=== PATIENT | female | born 1965 | race Caucasian/White ===

== ENCOUNTER 2023-05-19 06:00 | Outpatient (OUT) | payer BC, SELFPAY ==
[2023-05-19] MEDS: COVID VAC 23-24(12UP)MODERNA/PF 50 MCG/0.5 ML VIAL IM (13:00)
== END 2023-05-19 06:01 | disposition home or self-care (01) ==
DX: Z23 Encounter for immunization (principal)
CPT/HCPCS: 90480; 91322

== ENCOUNTER 2023-06-08 12:40 | Outpatient (OUT) | payer BC, SELFPAY ==
[2023-06-08 13:22] LABS: Basophils Absolute Auto 0.1 10^3/uL (0.0-0.1); Basophils Percent Auto 1.6 % (0.2-2.0); Eosinophils Absolute Auto 0.2 10^3/uL (0.0-0.7); Eosinophils Percent Auto 3.7 % (0.9-7.0); Hematocrit 38.9 % (36.0-48.0); Hemoglobin 12.2 g/dL (12.0-16.0); Immature Granulocytes Abs Auto 0.01 10^3/uL (0.00-0.03); Immature Granulocytes Pct Auto 0.2 % (0.0-0.5); Lymphocytes Absolute Auto 1.3 10^3/uL (1.2-3.8); Lymphocytes Percent Auto 23.4 % (20.5-60.0); Mean Corpuscular HGB Conc 31.4 g/dL (29.9-35.2); Mean Corpuscular Hemoglobin 29.1 pg (26.7-34.0); Mean Corpuscular Volume 92.8 fL (81.0-99.0); Mean Platelet Volume 10.1 fL (9.5-13.5); Monocytes Absolute Auto 0.6 10^3/uL (0.3-0.8); Monocytes Percent Auto 10.8 % (1.7-12.0); Neutrophils Absolute Auto 3.4 10^3/uL (1.4-6.5); Neutrophils Percent Auto 60.3 % (43.0-75.0); Platelet Count 327 10^3/uL (150-450); Red Blood Count 4.19 10^6/uL (4.20-5.40); Red Cell Distribution Width 13.3 % (11.0-15.0); White Blood Count 5.6 10^3/uL (4.0-11.0)
[2023-06-08 13:55] LABS: Alanine Aminotransferase 23 U/L (14-59); Albumin Globulin Ratio 1.2; Alkaline Phosphatase 78 U/L (46-116); Aspartate Amino Transferase 18 U/L (15-37); BUN Creatinine Ratio 18.3; Bilirubin Total 0.4 mg/dL (0.2-1.0); Calcium 8.9 mg/dL (8.5-10.1); Chloride 104 mmol/L (98-107); Chol HDL Ratio 3.2; Cholesterol 215 mg/dL (<=200); Estimated GFR (African America >60 (>=60); Estimated GFR (Non-African Ame >60 (>=60); Globulin 3.4 g/dL; Glucose 93 mg/dL (74-106); HDL Cholesterol 68 mg/dL (40-60); Sodium 141 mmol/L (136-145); Thyroid Stimulating Hormone 1.297 uIU/mL (0.358-3.740); Total Protein 7.4 g/dL (6.4-8.2); Triglycerides 92 mg/dL (<=150); VLDL CHOLESTEROL 18.4 mg/dL
== END 2023-06-08 12:41 | disposition home or self-care (01) ==
LOC: LAB 12:43
PROVIDERS: PCP Internal Medicine; Visit Provider Internal Medicine
DX: Z00.00 Encounter for general adult medical examination without abnormal findings (principal)
CPT/HCPCS: 36415; 80053; 80061; 84443; 85025

== ENCOUNTER 2024-07-01 11:03 | Outpatient (OUT) | payer BC, SELFPAY ==
--- OUTSIDE RECORDS SUMMARY | 2024-07-01 11:14 | XMS_ITS | CCD ---
Author Organization [facility] [place] CliniSyva Care Team Providers Care Process Manufacturing Engineer Name Role Phone Cali De La Rosa Unavailable Unavailable Nill, Cali Gracia Unavailable Unavailable HOWARD CALDERON~[phone] UNKNOWN Unavailable Unavailable FABRICIO ROSS Attending Unavailable GISELE, DR LANDIS Primary Care Unavailable AMNA, DR RICHARD Mark Consulting Unavailable CODYFABRICIO Admitting Unavailable CODYFABRICIO Consulting Unavailable GISELE, DR LANDIS Primary Care Unavailable YARA REYES Admitting Unavailable AMY, YARA Miranda Consulting Unavailable YARA REYES Attending Unavailable GISELE, DR LANDIS Primary Care Unavailable KVNG, DR AWAN Consulting Unavailable BALL, DR AWAN Attending Unavailable BALL, DR WAAN Admitting Unavailable HOY, DR LANDIS Consulting Unavailable FARSHADY, DR LANDIS Attending Unavailable GISELE, DR LANDIS Admitting Unavailable GISELE, DR LANDIS Primary Care Unavailable YARA REYES Attending Unavailable AMNA, DR RICHARD Mark Consulting Unavailable LINGANDERYARA Admitting Unavailable BALL, DR AWAN Primary Care Unavailable ZIEBER, DR JARED Gracia Consulting Unavailable HIGHLANDERYARA Consulting Unavailable AGUBOSIM, MANDEEP Consulting Unavailable FELIPEDEEPAK Consulting Unavailable BRONSONSUDEEP PROCTOR Consulting Unavailable YARA REYES Attending Unavailable HIGHLANDERYARA Admitting Unavailable BALL, DR AWAN Primary Care Unavailable HIGHLANDERYARA Consulting Unavailable LINGANDERYARA Attending Unavailable GISELE, DR LANDIS Primary Care Unavailable YARA REYES Admitting Unavailable YARA REYES Consulting Unavailable SUZETTE, SONIA Attending Unavailable GISELE, DR LANDIS Consulting Unavailable GISELE, DR LANDIS Primary Care Unavailable SUZETTE, SONIA Admitting Unavailable SUZETTESONIA Consulting Unavailable SUDEEP DOBSON Attending Unavailable SUDEEP DOBSON Admitting Unavailable GISELE, DR LANDIS Primary Care Unavailable GISELE, DR LANDIS Consulting Unavailable GISELE, DR LANDIS Attending Unavailable HOY, DR LANDIS Admitting Unavailable HOY, DR LANDIS Primary Care Unavailable GISELE, DR LANDIS Primary Care Unavailable GISELE, DR LANDIS Consulting Unavailable GISELE, DR LANDIS Attending Unavailable GISELE, DR LANDIS Admitting Unavailable CODY, FABRICIO Attending Unavailable GISELE, DR LANDIS Primary Care Unavailable EDVIN, DR JARED Gracia Consulting Unavailable CODY, FABRICIO Admitting Unavailable CODY, FABRICIO Consulting Unavailable CODY, FABRICIO Attending Unavailable GISELE, DR LANDIS Primary Care Unavailable CODY, FABRICIO Admitting Unavailable EDVIN, DR JARED Gracia Consulting Unavailable CODY, FABRICIO Consulting Unavailable CODY, FABRICIO Attending Unavailable GISELE, DR LANDIS Primary Care Unavailable CODY, FABRICIO Admitting Unavailable AMNA, DR RICHARD Mark Consulting Unavailable CODY, FABRICIO Consulting Unavailable Howard Calderno Unavailable Allergies Allergy Classification Reported Allergen(s) Allergy Type Date of Onset Reaction(s) Facility (2 sources) Nitrofurantoin Drug Allergy 5 Unknown [facility] Repository (1 source) Sulfonamides (Antibiotic) Drug allergy (disorder) 5 [facility] Repository (1 source) Nitrofurantoin Drug Allergy 7 Unknown [facility] Other (2 sources) Substance with sulfonamide structure and antibacterial mechanism of action (substance) Drug allergy 7 Unknown [facility] Other Medications Current Medications Medication Drug Class(es) Dates Sig (Normalized) Sig (Original) aspirin 81 mg delayed release oral tablet (2 sources) Platelet Aggregation Inhibitor, Nonsteroidal Anti-inflammator y Drug Start: 2 take 1 tablet by mouth every twenty-four hours Aspirin Adult Low Dose 81 MG 1 tablet Orally Once a day for 0 days May, Active benazepril hydrochloride 5 mg oral tablet (2 sources) Angiotensin Converting Enzyme Inhibitor take 1 tablet by mouth every twenty-four hours Benazepril HCl 5 MG 1 tablet Orally Once a day Active calcium carbonate 1250 mg oral tablet (2 sources) Start: 2 take 1 tablet by mouth every twelve hours Calcium Oyster Shell 1250 (500 Ca) MG 1 tablet with food Orally Twice a day for 0 days May, Active cetirizine hydrochloride 10 mg oral tablet (2 sources) Histamine-1 Receptor Antagonist Start: 2 take 1 tablet by mouth every twenty-four hours Cetirizine HCl 10 MG 1 tablet Orally Once a day for 0 days May, Active cholecalciferol 0.05 mg oral capsule (2 sources) Vitamin D Start: 2 take 1 capsule by mouth every twenty-four hours Vitamin D3 50 MCG (2000 UT) 1 capsule Orally Once a day for 0 days Sep, Active Daily Multivitamin - (2 sources) Start: 2 Daily Multivitamin - as directed Orally Daily for 0 days May, Active ferrous sulfate 325 mg oral tablet (2 sources) Start: 2 take 1 tablet by mouth three times weekly Iron 325 (65 Fe) MG 1 tablet Orally Three times a Week for 0 days May, Active hydroCHLOROthiazide 12.5 mg oral tablet (2 sources) Thiazide Diuretic take 1 tablet by mouth once daily hydroCHLOROthiazide 12.5 MG TAKE 1 TABLET BY MOUTH DAILY for 90 Active levothyroxine sodium 0.112 mg oral tablet (2 sources) l-Thyroxine take 1 tablet by mouth once daily in the morning Levothyroxine Sodium 112 MCG 1 tablet in the morning on an empty stomach Orally Once a day for 90 days Active Problems Active Problems Problem Classification Problem Date Documented Date Episodic/Chronic Acquired foot deformities (5 sources) Hallux rigidus, left foot; Translations: [HALLUX RIGIDUS LEFT FOOT] Onset: 07-26-2021 Chronic Essential hypertension (6 sources) Essential (primary) hypertension; Translations: [Essential hypertension] Onset: 08-12-2021 Chronic Menopausal disorders (2 sources) Menopausal symptom; Translations: [Menopausal and female climacteric states] Chronic Osteoarthritis (2 sources) Osteoarthritis of knee; Translations: [Unilateral primary osteoarthritis, right knee] Chronic Other connective tissue disease (2 sources) Pain in left foot; Translations: [Pain in left foot] Episodic Other nervous system disorders (1 source) Polyneuropathy, unspecified; Translations: [POLYNEUROPATHY UNSPECIFIED] Onset: 10-08-2021 Chronic Other nutritional; endocrine; and metabolic disorders (2 sources) Body mass index 30+ - obesity; Translations: [Body mass index (BMI) 30.0-30.9, adult] Chronic Other nutritional; endocrine; and metabolic disorders (2 sources) Obesity caused by energy imbalance; Translations: [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] Chronic Other nutritional; endocrine; and metabolic disorders (1 source) 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 Chronic Other nutritional; endocrine; and metabolic disorders (1 source) Body mass index (BMI) 30.0-30.9, adult Chronic Other screening for suspected conditions (not mental disorders or infectious disease) (1 source) Encounter for screening mammogram for malignant neoplasm of breast Episodic Other skin disorders (2 sources) Ingrowing nail; Translations: [Ingrowing nail] Episodic Ovarian cyst (2 sources) Cyst of left ovary; Translations: [Unspecified ovarian cyst, left side] Episodic Thyroid disorders (6 sources) Autoimmune hypothyroidism; Translations: [Hypothyroidism, unspecified] Chronic Unclassified (3 sources) COUGH, UNSPECIFIED; Translations: [COUGH, UNSPECIFIED] Onset: 06-15-2022 Unclassified (4 sources) CONTACT W/AND (SUSP) EXPOS COVID-19; Translations: [CONTACT W/AND (SUSP) EXPOS COVID-19] Onset: 06-30-2021 Past or Other Problems Problem Classification Problem Date Documented Da te Episodic/Chronic Other aftercare (1 source) Other buttermaker helper (current) drug therapy; Translations: [OTH NURSING HOME CURRENT DRUG THERAPY] Onset: 08-12-2021 Episodic Other aftercare (1 source) buttermaker helper (current) use of aspirin; Translations: [NURSING HOME CURRENT USE OF ASPIRIN] Onset: 08-12-2021 Episodic Other connective tissue disease (5 sources) Pain in left foot; Translations: [PAIN IN LEFT FOOT] Onset: 08-12-2021 Episodic Other connective tissue disease (4 sources) Pain in right foot; Translations: [PAIN IN RIGHT FOOT] Onset: 10-04-2021 Episodic Residual codes; unclassified (1 source) Acquired absence of both cervix and uterus; Translations: [ACQUIRED ABSENCE BOTH CERVIX AND UTERUS] Onset: 08-12-2021 Episodic Unclassified (1 source) COUGH, UNSPECIFIED; Translations: [COUGH, UNSPECIFIED] Onset: 06-12-2022 Unclassified (1 source) CONTACT W/AND (SUSP) EXPOS COVID-19; Translations: [CONTACT W/AND (SUSP) EXPOS COVID-19] Onset: 06-24-2021 Results Test Name Value Interpretation Reference Range Kelly medina Covid-19 PCR (CVDTBH)on 05-29 SARS-CoV-2 (COVID-19) RNA KO+probe Ql (Unsp spec) Not detected Normal NOT DETECTED [facility] Comment on above: Result Comment: This test is not yet approved or cleared by the [place] FDA. When there are no FDA-approved or cleared tests available, and other criteria are met, FDA can make tests available under an emergency access mechanism called an Emergency Use Authorization (EUA). The EUA for this test is supported by the [place] of Health and Human Service's (HHS's) declaration that circumstances exist to justify the emergency use of in vitro diagnostics for the detection and/or diagnosis of the virus that causes COVID-19. This EUA will remain in effect (meaning this test can be used) for the duration of the COVID-19 declaration justifying emergency of IVDs, unless it is terminated or revoked by FDA (after which the test may no longer be used). When diagnostic testing is negative, the possibility of a false negative should be considered in the context of a patient's recent exposures and the presence of clinical signs and symptoms consistent with SARS-CoV-2. Performed By: #### C VDTBH ####[facility] [address] [address]Dr. Karina Lindsay INFLUENZA A AND B AGon 06-12 [facility] SEE BELOW Normal [facility] Comment on above: Result Comment: Nega tive for Flu A protein angiten. Infection due to Flu A cannot be ruled out. Flu A angiten in the sample may be below the detection limit of the test. Performed By: #### I NFLUAB #### [facility] [address] [address] [address] Karina Lindsay INFLUBNEG SEE BELOW Normal [facility] Comment on above: Result Comment: Nega tive for Flu B protein antigen. Infection due to Flu B cannot be ruled out. Flu B antigen in the sample may be below the detection limit of the test. Performed By: #### I NFLUAB #### [facility] [address] [address] [address] Karina Lindsay INFLUENZA A AG Negative Normal NEGATIVE SEE COMMENT [facility] Comment on above: Performed By: #### I NFLUAB #### [facility] [address] [address] [address] Karina Lindsay INFLUENZA B AG Negative Normal NEGATIVE SEE COMMENT [facility] Comment on above: Performed By: #### I NFLUAB #### [facility] [address] [address] [address] Karina Lindsay INTERNAL CONTROLS Within Normal Limits Normal Wi thin Normal Limits [facility] Comment on above: Performed By: #### I NFLUAB #### [facility] [address] [address] [address] Karina Lindsay CBC AUTO DIFFon 06-05-2022 BASO # 0.1 103/ul Normal 0.0-0.1 [facility] Comment on above: Performed By: #### C BC ####[facility] [address] [address]DrTrice Lindsay Basophils/100 WBC (Bld) 1.2 % Normal 0.2-2.0 [facility] Comment on above: Performed By: #### C BC ####[facility] [address] [address]DrTrice Lindsay EO # 0.2 103/ul Normal 0.0-0.7 [facility] Comment on above: Performed By: #### C BC ####[facility] [address] [place] [address]DrTrice Lindsay Eosinophils/100 WBC (Bld) 4.8 % Normal 0.9-7.0 [facility] Comment on above: Performed By: #### C BC ####[facility] [address] [place] [id number] Lindsay Erythrocyte distribution width (RBC) [Ratio] 13.2 % Normal 11.0-15.0 [facility] Comment on above: Performed By: #### C BC ####[facility] [address] [address]DrTrice Lindsay Hematocrit (Bld) [Volume fraction] 38.2 % Normal 36.0-48.0 [facility] Comment on above: Performed By: #### C BC ####[facility] [address] [address]Dr. Karina Lindsay Hemoglobin (Bld) [Mass/Vol] 12.5 g/dL Normal 12.0-16.0 [facility] Comment on above: Performed By: #### C BC ####[facility] [address] [address]Dr. Karina Lindsay IG # 0.01 10e3/ul Normal 0.00-0.03 [facility] Comment on above: Performed By: #### C BC ####[facility] [address] [place], [place] [address]Dr. Karina Lindsay IG % 0.2 % Normal 0.0-0.5 [facility] Comment on above: Performed By: #### C BC ####[facility] [address] [place], [place] [address]Dr. Karina Lindsay LYMPH # 1.3 103/ul Normal 1.2-3.8 [facility] Comment on above: Performed By: #### C BC ####[facility] [address] [place], [place] [address]Dr. Karina Lindsay Lymphocytes/100 WBC (Bld) 25.0 % Normal 20.5-60.0 [facility] Comment on above: Performed By: #### C BC ####[facility] [address] [place], [place] [address]Dr. Carenchseter Lindsay MANUAL DIFF REQ NO Normal [facility] Comment on above: Performed By: #### C BC ####[facility] [address] [place], [place] [address]Dr. Karina Lindsay MCH (RBC) [Entitic mass] 30.8 pg Normal 26.7-34.0 [facility] Comment on above: Performed By: #### C BC ####[facility] [address] [place], [place] [address]Dr. Karina Lindsay MCHC (RBC) [Mass/Vol] 32.7 g/dL Normal 29.9-35.2 [facility] Comment on above: Performed By: #### C BC ####[facility] [address] [place] [id number]. Karina Lindsay MCV (RBC) [Entitic vol] 94.1 fL Normal 81.0-99.0 [facility] Comment on above: Performed By: #### C BC ####[facility] [address] [place] [id number]. Karina Lindsay MONO # 0.5 103/ul Normal 0.3-0.8 [facility] Comment on above: Performed By: #### C BC ####[facility] [address] [place] [id number]. Karina Neftali Monocytes/100 WBC (Bld) 10.5 % Normal 1.7-12.0 [facility] Comment on above: Performed By: #### C BC ####[facility] [address] [place], [place] [id number]. Karina Lindsay NEUT # 2.9 103/ul Normal 1.4-6.5 [facility] Comment on above: Performed By: #### C BC ####[facility] [address] [place] [id number]. Karina Neftali Neutrophils/100 WBC (Bld) 58.3 % Normal 43.0-75.0 [facility] Comment on above: Performed By: #### C BC ####[facility] [address] [place] [id number]. Karina Neftali Platelet mean volume (Bld) [Entitic vol] 9.7 fL Normal 9.5-13.5 [facility] Comment on above: Performed By: #### C BC ####[facility] [address] [place] [id number]. Karina Neftali PLT 303 103/ul Normal 150-450 [facility] Comment on above: Performed By: #### C BC ####[facility] [address] [place] [id number]. Karina Lindsay RBC 4.06 106/ul Critically low 4.20-5.40 [facility] Comment on above: Performed By: #### C BC ####[facility] [address] [place], [place] [address]WtDr. Karina Lindsay WBC 5.0 103/ul Normal 4.0-11.0 [facility] Comment on above: Performed By: #### C BC ####[facility] [address] [place], [place] [address]NtDr. Karina Lindsay LIPID PROFILEon 06-05-2022 CHOL-HDL RATIO NORM SEE BELOW Normal [facility] Comment on above: Result Comment: 3.3 - 4.4 LOW RISK 4.4 - 7.1 AVERAGE RISK 7.1 - 11.0 MODERATE RISK >11.0 HIGH RISK Performed By: #### C MP, LIPID, TSH #### [facility] [address] [address] [address] Karina Lindsay Cholesterol [Mass/Vol] 209 mg/dL Critically high <=200 [facility] Comment on above: Performed By: #### C MP, LIPID, TSH #### [facility] [address] [address] [address] Karina Lnidsay Cholesterol in HDL [Mass/Vol] 75 mg/dL Critically high 40-60 [facility] Comment on above: Performed By: #### C MP, LIPID, TSH #### [facility] [address] [address] [address] Karina Lindsay Cholesterol in LDL [Mass/Vol] 117.2 mg/dL Normal [facility] Comment on above: Performed By: #### C MP, LIPID, TSH #### [facility] [address] [address] [address] Karina Lindsay Cholesterol.total/C holesterol in HDL [Mass ratio] 2.8 {ratio} Normal [facility] Comment on above: Performed By: #### C MP, LIPID, TSH #### [facility] [address] [address] [address] Karina Lindsay HDL NORMAL > or = 60 mg/dl - LO W CARDIOVASCULAR RISK <40 mg/dl - HIGH CARDIOVASCULAR RISK Normal [facility] Comment on above: Performed By: #### C MP, LIPID, TSH #### [facility] [address] [address] [address] Karina Lindsay LDL CALC NORMAL SEE BELOW Normal [facility] Comment on above: Result Comment: <100 mg/dl OPTIMAL 100 - 129 mg/dl NEAR OR ABOVE OPTIMAL 130 - 159 mg/dl BORDERLINE HIGH 160 - 189 mg/dl HIGH >190 mg/dl VERY HIGH Performed By: #### C MP, LIPID, TSH #### [facility] [address] [address] [address] Karina Lindsay Triglyceride [Mass/Vol] 84 mg/dL Normal <=150 [facility] Comment on above: Performed By: #### C MP, LIPID, TSH #### [facility] [address] [address] [address] Karina Lindsay VLDL CALC 16.8 mg/dL Normal [facility] Comment on above: Performed By: #### C MP, LIPID, TSH #### [facility] [address] [address] [address] Karina Lindsay PROF 14(COMP METB)on 022 Albumin [Mass/Vol] 4.1 g/dL Normal 3.4-5.0 [facility] Comment on above: Performed By: #### C MP, LIPID, TSH ####[facility] [address] [address]DrTrice Lindsay Albumin/Globulin [Mass ratio] 1.2 {ratio} Normal [facility] Comment on above: Performed By: #### C MP, LIPID, TSH ####[facility] [address] [place] [address]DrTrice Lindsay ALP [Catalytic activity/Vol] 82 U/L Normal 46-116 [facility] Comment on above: Performed By: #### C MP, LIPID, TSH ####[facility] [address] [place] [id number] Lindsay ALT [Catalytic activity/Vol] 15 U/L Normal 14-59 [facility] Comment on above: Performed By: #### C MP, LIPID, TSH ####[facility] [address] [place] [id number]. Karina Lindsay Anion gap [Moles/Vol] 9.9 mmol/L Normal [facility] Comment on above: Performed By: #### C MP, LIPID, TSH ####[facility] [address] [place] [address]Dr. Karina Lindsay AST [Catalytic activity/Vol] 18 U/L Normal 15-37 [facility] Comment on above: Performed By: #### C MP, LIPID, TSH ####[facility] [address] [address]Dr. Karina Lindsay Bilirubin [Mass/Vol] 0.3 mg/dL Normal 0.2-1.0 [facility] Comment on above: Performed By: #### C MP, LIPID, TSH ####[facility] [address] [place] [address]Dr. Karina Lindsay Calcium [Mass/Vol] 9.6 mg/dL Normal 8.5-10.1 [facility] Comment on above: Performed By: #### C MP, LIPID, TSH ####[facility] [address] [place] [address]Dr. Karina Lindsay Chloride [Moles/Vol] 104 mmol/L Normal 98-107 [facility] Comment on above: Performed By: #### C MP, LIPID, TSH ####[facility] [address] [place] [address]Dr. Karina Lindsay CO2 [Moles/Vol] 30.4 mmol/L Normal 21.0-32.0 [facility] Comment on above: Performed By: #### C MP, LIPID, TSH ####[facility] [address] [place] [address]Dr. Karina Lindsay Creatinine [Mass/Vol] 0.91 mg/dL Normal 0.55-1.02 [facility] Comment on above: Performed By: #### C MP, LIPID, TSH ####[facility] [address] [address]Dr. Karina Lindsay EGFR-AF RWANDAN >60 Normal >=60 [facility] Comment on above: Performed By: #### C MP, LIPID, TSH ####[facility] [address] [place] [id number]. Karina Lindsay EGFR-NON AF RWANDAN >60 Normal >=60 [facility] Comment on above: Performed By: #### C MP, LIPID, TSH ####[facility] [address] [place] [id number]. Karina Lindsay Globulin (S) [Mass/Vol] 3.5 g/dL Normal [facility] Comment on above: Performed By: #### C MP, LIPID, TSH ####[facility] [address] [place] [id number]. Karina Lindsay Glucose [Mass/Vol] 89 mg/dL Normal 74-106 [facility] Comment on above: Performed By: #### C MP, LIPID, TSH ####[facility] [address] [place] [address]Dr. Karina Lindsay Potassium [Moles/Vol] 4.3 mmol/L Normal 3.5-5.1 [facility] Comment on above: Performed By: #### C MP, LIPID, TSH ####[facility] [address] [place] [address]Dr. Karina Lindsay Protein [Mass/Vol] 7.6 g/dL Normal 6.4-8.2 [facility] Comment on above: Performed By: #### C MP, LIPID, TSH ####[facility] [address] [place] [id number]. Karina Lindsay Sodium [Moles/Vol] 140 mmol/L Normal 136-145 [facility] Comment on above: Performed By: #### C MP, LIPID, TSH ####[facility] [address] [place] [address]Dr. Karina Lindsay Urea nitrogen [Mass/Vol] 17.0 mg/dL Normal 7.0-18.0 [facility] Comment on above: Performed By: #### C MP, LIPID, TSH ####[facility] [address] [place] [id number]. Karina Lindsay Urea nitrogen/Creatinine [Mass ratio] 18.7 mg/mg Normal [facility] Comment on above: Performed By: #### C MP, LIPID, TSH ####[facility] [address] [place], [place] [address]ZiDr. Karina Lindsay TSHon 06-05-2022 TSH 2.794 uIU/mL Normal 0.358-3.740 [facility] Comment on above: Performed By: #### C MP, LIPID, TSH #### [facility] [address] [place], [place] [address] Dr. Karina Lindsay XR FOOT LT 2Von 08-05-2021 XR FOOT LT 2V EXAM: XR FOOT LT 2V HISTORY: Pain in left foot COMPARISON: 05/30/2021 TECHNIQUE: 14 fluoroscopic images FINDINGS: 14 fluoroscopic images demonstrate fusion of the first metatarsal-phalangeal joint with a dorsal plate and multiple screws. Anatomic alignment is demonstrated. IMPRESSION: Fusion the first metatarsal-phalangeal joint Electronically authenticated by: RICHARD WOO Date: 2021-08-05 15:44 Normal [facility] Covid-19 PCR (CVDTBH)on SARS-CoV-2 (COVID-19) RNA KO+probe Ql (Unsp spec) Not detected Normal NOT DETECTED [facility] Comment on above: Result Comment: This test is not yet approved or cleared by the [place] FDA. When there are no FDA-approved or cleared tests available, and other criteria are met, FDA can make tests available under an emergency access mechanism called an Emergency Use Authorization (EUA). The EUA for this test is supported by the [employer] of Health and Human Service's (HHS's) declaration that circumstances exist to justify the emergency use of in vitro diagnostics for the detection and/or diagnosis of the virus that causes COVID-19. This EUA will remain in effect (meaning this test can be used) for the duration of the COVID-19 declaration justifying emergency of IVDs, unless it is terminated or revoked by FDA (after which the test may no longer be used). When diagnostic testing is negative, the possibility of a false negative should be considered in the context of a patient's recent exposures and the presence of clinical signs and symptoms consistent with SARS-CoV-2. Performed By: #### C VDTBH ####[facility] [address] [place], [place] [address]Rt. Karina Lindsay [facility]on 05-30 SARS-CoV-2 (COVID-19) RNA KO+probe Ql (Unsp spec) Not detected Normal NOT DETECTED [facility] Comment on above: Result Comment: This test is not yet approved or cleared by the [place] FDA. When there are no FDA-approved or cleared tests available, and other criteria are met, FDA can make tests available under an emergency access mechanism called an Emergency Use Authorization (EUA). The EUA for this test is supported by the Creative Designer of Health and Human Service's (HHS's) declaration that circumstances exist to justify the emergency use of in vitro diagnostics for the detection and/or diagnosis of the virus that causes COVID-19. This EUA will remain in effect (meaning this test can be used) for the duration of the COVID-19 declaration justifying emergency of IVDs, unless it is terminated or revoked by FDA (after which the test may no longer be used). When diagnostic testing is negative, the possibility of a false negative should be considered in the context of a patient's recent exposures and the presence of clinical signs and symptoms consistent with SARS-CoV-2. Performed By: #### C VDTB ####[facility] [address] [place] [id number]. Karina Lindsay INFLUENZA A AND B AGon 06-24 [facility] SEE BELOW Normal [facility] Comment on above: Result Comment: Nega tive for Flu A protein angiten. Infection due to Flu A cannot be ruled out. Flu A angiten in the sample may be below the detection limit of the test. Performed By: #### I NFLUAB #### [facility] [address] [place] [address] Dr. Karina Lindsay [facility] SEE BELOW Normal [facility] Comment on above: Result Comment: Nega tive for Flu B protein antigen. Infection due to Flu B cannot be ruled out. Flu B antigen in the sample may be below the detection limit of the test. Performed By: #### I NFLUAB #### [facility] [address] [place] [address] Dr. Karina Lindsay INFLUENZA A AG Negative Normal NEGATIVE SEE COMMENT [facility] Comment on above: Performed By: #### I NFLUAB #### [facility] [address] [address] [address] Karina Lindsay INFLUENZA B AG Negative Normal NEGATIVE SEE COMMENT [facility] Comment on above: Performed By: #### I NFLUAB #### [facility] [address] [place] [address] Dr. Karina Lindsay INTERNAL CONTROLS Within Normal Limits Normal Wi thin Normal Limits [facility] Comment on above: Performed By: #### I NFLUAB #### [facility] [address] [place] [address] Dr. Karina Lindsay Coding Summary.on 01-01-2018 Coding Summary. CODING DATE: 01/01/2018 FINAL [facility] STATUS: Home (Routine DC) PAYOR: [facility] [place] [facility] DESCRIPTION 5671 Level 1 Pathology ADMIT DX: REASON FOR VISIT DX: D49.89 Neoplasm of unspecified behavior of other specified sites L98.9 Disorder of the skin and subcutaneous tissue, unspecified FINAL DX: PRINCIPAL: D23.5 Other benign neoplasm of skin of trunk SECONDARY: PYMT PROC APC STAT DESCRIPTION DOCTOR NAME DATE NOTE: The code number assigned matches the documented diagnosis and / or procedure in the patient's chart. However, the narrative phrase printed from the coding software may appear abbreviated, or result in slightly different terminology. Coded By: Delmi Walter Date Saved: 01/01/2018 08:57 am Normal [facility] Vital Signs Date Time Vital Sign Value Performing Clinician Facility 06-08-2023 11:00-0500 Body height 170.18 cm Howard Kvng Other [email or web address] Other 06-08-2023 11:00-0500 Body mass index (BMI) [Ratio] 30.44 kg/m2 Howard Kvng Other [email or web address] Other 06-08-2023 11:00-0500 Body weight 88.18 kg Howard Calderon Other [email or web address] Other 06-08-2023 11:00-0500 Diastolic blood pressure 86 mm[Hg] Howard Calderon Other [email or web address] Other 06-08-2023 11:00-0500 Respiratory rate 12 /min Howard Kvng Other [email or web address] Other 06-08-2023 11:00-0500 Systolic blood pressure 147 mm[Hg] Howard Calderon Other [email or web address] Other Encounters Encounter Date Encounter Type Care Provider Facility Start: 06-09-2023 End: 06-09-2023 ambulatory Howard Calderon Other [email or web address] Other Start: 06-09-2023 Telephone encounter Howard Calderon [facility] Start: 06-08-2023 End: 06-08-2023 ambulatory Howard Calderon Other [email or web address] Other Start: 06-08-2023 Encounter for genera l adult medical examination without abnormal findings Howard Calderon [facility] Start: 06-08-2023 Periodic preventive med est patient 40-64yrs Howard Calderon [facility] Start: 06-12-2022 End: 06-12-[address] BOBY ROY Facility:[facility] Start: 06-09-2022 Encounter for genera l adult medical examination without abnormal findings DR HOWARD CALDERON [facility] Start: 06-05-2022 End: 06-06-[address] BOBY ROY Facility:[facility] Start: 06-05-2022 End: 06-06-2022 Encounter for general adult medical examination without abnormal findings DR BOBY ROY Facility:[facility] Start: 05-07-2022 End: 05-08-[address] BOBY ORY Facility:[facility] Start: 02-12-2022 End: 02-13-[address] BOBY ROY Facility:[facility] Start: 11-12-2021 End: 11-13-2021 ambulatory FABRICIO ROSS Facility:[facility] Start: 10-15-2021 End: 10-16-2021 ambulatory FABRICIO ROSS Facility:[facility] Start: 10-04-2021 End: 10-05-2021 ambulatory SONIA BRADFORD Facility:[facility] Start: 09-18-2021 End: 10-04-2021 ambulatory SUDEEP DOBSON Facility:[facility] Start: 09-17-2021 End: 09-18-2021 ambulatory FABRICIO ROSS Facility:[facility] Start: 08-28-2021 End: 08-29-2021 ambulatory FABRICIO ROSS Facility:[facility] Start: 08-05-2021 End: 08-05-2021 ambulatory YARA REYES Facility:[facility] Start: 08-02-2021 Encounter for preprocedural laboratory examination YARA REYES [facility] Start: 07-31-2021 End: 08-01-2021 ambulatory YARA REYES Facility:[facility] Start: 07-31-2021 End: 08-01-2021 Encounter for preprocedural laboratory examination YARA REYES Facility:[facility] Start: 07-24-2021 End: 07-25-2021 ambulatory YARA REYES Facility:[facility] Start: 06-24-2021 End: 06-24-[address] BOBY ROY Facility:[facility] Start: 12-23-2017 End: 12-24-2017 Ambulatory Cali De La Rosa [facility] Immunizations Immunization Date Immunization Notes Care Provider Nanda mares 08-14-2020 COVID-19 Vaccine Pfi zer - Documentation Purposes Only Howard Calderon Other [email or web address] Other Payers Date Payer Category Payer Unknown [id number] 2017 Unknown 1965 Unknown [id number] 1965 Unknown [id number] 08.14.84 [id number] 1965 Unknown [id number] 1965 Unknown [id number] 08.14.84 [id number] 1965 Unknown [id number] 2.16.84 [id number] 1965 Unknown [id number] 2.16.84 0.1.933862.3.579.2.593 1965 Unknown [id number] 2.16.84 0.1.839482.3.579.2.593 1965 Unknown [id number] 2.16.84 0.1.644494.3.579.2.593 1965 Unknown [id number] 2.16.84 0.1.066908.3.579.2.593 1965 Unknown [id number] 2.16.84 0.1.532848.3.579.2.593 1965 Unknown [id number] 2.16.84 0.1.285103.3.579.2.593 1965 Unknown [id number] 2.16.84 0.1.228688.3.579.2.593 1965 Unknown [id number] 2.16.84 0.1.366219.3.579.2.593 1959 [id number] Unknown [id number] 2.16.84 [id number] Social History Date Type Detail Facility Sex Assigned At [email or web address] Other Evaluation note 06-08-2023 Note Date & Type Note Facility 06-08-2023 Evaluation note Encounter Date Diagnosis Assessment Notes May, Wellness examination (ICD-10 - Z00.00) Healthy diet and exercise. Reviewed age-appropriat e preventive testing recommended. May, Primary hypertension (ICD-10 - I10) This patient is instructed to consume a healthy, low-fat, low-salt diet. They are also encouraged to continue exercise to achieve/mainta in a normal BMI. Patient is instructed on home BP measurements: - rest for 5 minutes w/o talking- positioned w/ feet on floor and arm supported- average best 2/3 readings w/ goal < 135/85 May, Autoimmune thyroiditis (ICD-10 - E06.3) Clinically euthyroid, TSH yearly May, Other specified hypothyroidism (ICD-10 - E03.8) May, Screening mammogram for breast cancer (ICD-10 - Z12.31) Instructed patient on monthly SBE and yearly mammograms. May, 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 (ICD-10 - E66.09) This patient has been instructed on a low-fat, high-fiber diet. They are instructed to reduce calories, portion sizes and snacks. It is recommended that they exercise for 30 minutes, 3-5 times weekly. May, Body mass index [BMI] 30.0-30.9, adult (ICD-10 - Z68.30) [email or web address] Other Clinical Note 02-13-2022 Note Date & Type Note Facility 02-13-2022 Note PROCEDURE: XR FOOT L T MIN 3 VIEWS HISTORY: Pain in left foot COMPARISON: XR foot left 11/12/2021 FINDINGS: BONES:Mechanical fusion of the first metatarsophalangeal joint via dorsal plate and screws. No hardware fracture or loosening. No bone fracture dislocation. Calcaneal degenerative enthesopathic spurring. SOFT TISSUES:No visible soft tissue swelling. EFFUSION:None visible. OTHER: Negative. IMPRESSION: 1. Stable surgical changes without evidence of hardware failure or change in alignment. Electronically authenticated by: JARED PARDO Date: 2022-02-13 06:35 [facility] Clinical Note 11-12-2021 Note Date & Type Note Facility 11-12-2021 Note PROCEDURE: XR FOOT L T MIN 3 VIEWS COMPARISON: 10/15/2021 HISTORY: Pain FINDINGS: BONES:Stable dorsal fusion of first metatarsal-phalangeal joint with a plate and multiple screws. No acute fracture, dislocation or mechanical failure. Moderate enthesopathic spurring of the calcaneus. Mild degenerative changes with marginal osteophyte formation SOFT TISSUES:Negative. No visible soft tissue swelling. EFFUSION:None visible. OTHER: Negative. IMPRESSION: Stable first metatarsal-phalangeal joint fusion Electronically authenticated by: RICHARD WOO Date: 2021-11-12 09:29 [facility] Clinical Note 10-15-2021 Note Date & Type Note Facility 10-15-2021 Note PROCEDURE: XR FOOT L T MIN 3 VIEWS HISTORY: Pain in left foot COMPARISON: XR foot 09/17/2021 FINDINGS: BONES:Mechanical fusion of first metatarsophalangeal joint via dorsal plate and screws; no evidence of hardware fracture or loosening. No bone fracture, dislocation, or lesion. Minimal degenerative changes the midfoot. Mild degenerative disease appendix spurring of the calcaneus. SOFT TISSUES:No visible soft tissue swelling. EFFUSION:None visible. OTHER: Negative. IMPRESSION: 1. Stable surgical changes without evidence of hardware failure or change in alignment. Electronically authenticated by: JARED PARDO Date: 2021-10-15 10:33 [facility] Clinical Note 09-17-2021 Note Date & Type Note Facility 09-17-2021 Note PROCEDURE: XR FOOT L T MIN 3 VIEWS COMPARISON: 08/28/2021 HISTORY: Pain in left foot FINDINGS: BONES:Stable fusion first metatarsal-phalangeal joint with a dorsal plate and multiple screws. No acute fracture or dislocation. Degenerative changes with joint space narrowing marginal osteophyte formation. Mild to moderate enthesopathic spurring of the calcaneus SOFT TISSUES:Negative. No visible soft tissue swelling. EFFUSION:None visible. OTHER: Negative. IMPRESSION: Stable first metatarsal-phalangeal joint fusion. No mechanical failure Electronically authenticated by: RICHARD WOO Date: 2021-09-17 10:34 [facility] Clinical Note 08-28-2021 Note Date & Type Note Facility 08-28-2021 Note PROCEDURE: XR FOOT L T MIN 3 VIEWS HISTORY: Pain in left foot COMPARISON: XR foot left 08/05/2021 FINDINGS: BONES:Mechanical fusion of the first metatarsophalangeal joint without evidence of hardware fracture or loosening. Degenerative enthesopathic spurring of the calcaneus. SOFT TISSUES:Mild medial soft tissue swelling. Skin ashlyn dorsal to the first metatarsal. EFFUSION:None visible. OTHER: Negative. IMPRESSION: 1. Stable surgical changes without evidence of hardware failure or change in alignment. Electronically authenticated by: JARED PARDO Date: 2021-08-28 17:30 [facility] Clinical Note 08-06-2021 Note Date & Type Note Facility 08-06-2021 Note PROCEDURE: XR FOOT L T MIN 3 VIEWS HISTORY: Arthritis of left foot COMPARISON: XR foot left 08/05/2021 intraoperative images FINDINGS: BONES:Mechanical fusion of the first metatarsophalangeal joint via dorsal plate and screws. No visible hardware fracture. No bone fracture dislocation. Degenerative calcaneal enter spur. SOFT TISSUES:Distal dorsal soft tissue swelling and skin ashlyn. EFFUSION:None visible. OTHER: Negative. IMPRESSION: 1. Stable surgical changes without evidence of hardware fracture or change in alignment compared to intraoperative images. Electronically authenticated by: JARED PARDO Date: 2021-08-06 07:17 [facility] Evaluation note Note Date & Type Note Facility Evaluation note No Information [facility] Other History general Narrative - Reported Note Date & Type Note Facility History general Narrative - Reported Type Medical History Autoimmune hypothyroidism Medical History Essential hypertension Medical History Onychocryptosis Medical History Left foot pain Medical History Primary osteoarthrit is of right knee Medical History Phlebitis and thromb ophlebitis of superficial vessels of right lower extremity Medical History Rectocele Medical History Cystocele, midline Medical History Ovarian cyst, left Medical History Menopausal symptom Surgical History COLONOSCOPY 03/2019 Surgical History FUSION OF FIRST METATARSOPHALANGEAL (MTP) JOINT OF LEFT FOOT Surgical History Hernia Repair, Inguinal Surgical History Knee arthroscopy, Bilateral Surgical History ROBOT-ASSISTED LAPAR OSCOPIC TOTAL ABDOMINAL HYSTERECTOMY (BISI) AND BILATERAL SALPINGO-OOPHORECTOMY (BSO) Surgical History Right Knee Arthrosco py: lateral meniscectomy 04/2015 Surgical History Tonsillectomy and adenoidectomy 01/13/2006 Hospitalization History see surgical history [email or web address] Other Summary Purpose Family History No Family History Records FoundNo Family History Records Found Advance Directives No Advanced Directives Records FoundNo Advanced Directives Records Found Additional Source Comments INFORMATION SOURCE (unrecogn ized section and content) DATE CREATED AUTHOR 01/04/2018 [facility] DATE CREATED AUTHOR AUTHOR'S ORGANIZ ATION 06/19/2022 [facility] REASON FOR VISIT (unrecogniz ed section and content) [facility] results FOR RECORDS PERTAINING TO PATIENTS WHO ARE OR HAVE BEEN ENROLLED IN A CHEMICAL DEPENDENCY/SUBSTANCEABUSE PROGRAM, SOME INFORMATION MAY BE OMITTED. This clinical summary was aggregated from multiple sources. Caution should be exercised in using it in the provision of clinical care. This summary normalizes information from multiple sources, and as a consequence, information in this document may materially change the coding, format and clinical context of patient data. In addition, data may be omitted in some cases. CLINICAL DECISIONS SHOULD BE BASED ON THE PRIMARY CLINICAL RECORDS. [facility]. provides no warranty or guarantee of the accuracy or completeness of information in this document.
[2024-07-01 11:36] LABS: Basophils Absolute Auto 0.1 10^3/uL (0.0-0.1); Basophils Percent Auto 1.2 % (0.2-2.0); Eosinophils Absolute Auto 0.2 10^3/uL (0.0-0.7); Hematocrit 38.6 % (36.0-48.0); Hemoglobin 12.4 g/dL (12.0-16.0); Immature Granulocytes Abs Auto 0.01 10^3/uL (0.00-0.03); Immature Granulocytes Pct Auto 0.2 % (0.0-0.5); Lymphocytes Absolute Auto 1.3 10^3/uL (1.2-3.8); Lymphocytes Percent Auto 24.2 % (20.5-60.0); Mean Corpuscular HGB Conc 32.1 g/dL (29.9-35.2); Mean Corpuscular Hemoglobin 29.5 pg (26.7-34.0); Mean Corpuscular Volume 91.9 fL (81.0-99.0); Monocytes Absolute Auto 0.5 10^3/uL (0.3-0.8); Monocytes Percent Auto 9.4 % (1.7-12.0); Neutrophils Absolute Auto 3.2 10^3/uL (1.4-6.5); Platelet Count 320 10^3/uL (150-450); Red Cell Distribution Width 14.2 % (11.0-15.0); White Blood Count 5.2 10^3/uL (4.0-11.0)
[2024-07-01 12:00] LABS: Alanine Aminotransferase 26 U/L (14-59); Albumin Globulin Ratio 1.2; Albumin Level 3.8 g/dL (3.4-5.0); Alkaline Phosphatase 83 U/L (46-116); Anion Gap 8.9; Aspartate Amino Transferase 20 U/L (15-37); BUN Creatinine Ratio 20.9; Bilirubin Total 0.4 mg/dL (0.2-1.0); Calcium 9.2 mg/dL (8.5-10.1); Chloride 104 mmol/L (98-107); Cholesterol 212 mg/dL (<=200); Estimated GFR (African America >60 (>=60 mL/min/1.73m^2); Estimated GFR (Non-African Ame >60 (>=60 mL/min/1.73m^2); Globulin 3.3 g/dL; Glucose 87 mg/dL (74-106); HDL Cholesterol 70 mg/dL (40-60); Potassium 3.9 mmol/L (3.5-5.1); Sodium 142 mmol/L (136-145); Thyroid Stimulating Hormone 2.111 uIU/mL (0.358-3.740); Total Protein 7.1 g/dL (6.4-8.2); Triglycerides 82 mg/dL (<=150); VLDL CHOLESTEROL 16.4 mg/dL
== END 2024-07-01 11:04 | disposition home or self-care (01) ==
LOC: LAB 11:04
PROVIDERS: PCP Internal Medicine; Visit Provider Internal Medicine
DX: Z00.00 Encounter for general adult medical examination without abnormal findings (principal); E06.3 Autoimmune thyroiditis
CPT/HCPCS: 36415; 80053; 80061; 84443; 85025

== ENCOUNTER 2024-12-16 13:55 | Outpatient (OUT) | payer BC, SELFPAY ==
--- NOTE | 2024-12-16 13:59 | MM_ITS ---
Patient Name: BERNARDO JAQUEZ MR#: [id number] : 1965 Exam Date: 12/16/2024 Ordering Doctor: DR EMPERATRIZ GEORGE D.O. RADIOLOGY REPORT PROCEDURE: MM TOMOSYNTHESIS SCREENING BI COMPARISON: MG MAMM SCREEN 3D MAXIMO CAD, 05/02/2021. MG MAMM SCREEN MAXIMO W CAD, 06/07/2019. MG MAMM SCREEN MAXIMO W CAD, 11/25/2016. MG MAMM SCREEN MAXIMO W CAD, 12/01/2006. INDICATIONS: Screening for malignant neoplasm Calculator Name [facility] Breast Cancer Risk Assessment Tool 5 Year Breast Cancer Risk 1.50% Lifetime Breast Cancer Risk 8.30% Personal Breast Cancer No Personal Ovarian Cancer No Treatments None Family Cancers Grandmother-maternal with kidney cancer at age ~75. LOCATION: [facility] BREAST COMPOSITION: There are scattered areas of fibroglandular density. FINDINGS: DIAGNOSTIC CATEGORY 1--NEGATIVE. RIGHT BREAST: No significant suspicious finding. LEFT BREAST: No significant suspicious finding. RECOMMENDATIONS: ROUTINE MAMMOGRAM AND CLINICAL EVALUATION IN 12 MONTHS. PLEASE NOTE: A NORMAL MAMMOGRAM DOES NOT EXCLUDE THE POSSIBILITY OF BREAST CANCER. A CLINICALLY SUSPICIOUS PALPABLE LUMP SHOULD BE BIOPSIED. Dictated by: Viral Gary DO on 12/16/2024 at 16:03 Approved by: Viral Gary DO on 12/16/2024 at 16:05
--- OUTSIDE RECORDS SUMMARY | 2024-12-16 14:21 | XMS_ITS | CCD ---
Author Organization [facility] CliniSymt Care Team Providers Care Loan Servicing Specialist Name Role Phone Cali De La Rosa Unavailable Unavailable Cali De La Rosa Unavailable Unavailable HOWARD CALDERON~[phone] UNKNOWN Unavailable Unavailable FABRICIO ROSS Attending Unavailable GISELE, DR LANDIS Primary Care Unavailable WEST, DR RICHARD Mark Consulting Unavailable CODYFABRICIO Admitting Unavailable CODYFABRICIO Consulting Unavailable FARSHADY, DR LANDIS Primary Care Unavailable YARA REYES Admitting Unavailable YARA REYES Consulting Unavailable YARA REYES Attending Unavailable GISELE, DR LANDIS Primary Care Unavailable BALL, DR AWAN Consulting Unavailable BALL, DR AWAN Attending Unavailable BALL, DR AWAN Admitting Unavailable HOY, DR LANDIS Consulting Unavailable HOY, DR LANDIS Attending Unavailable HOY, DR LANDIS Admitting Unavailable GISELE, DR LANDIS Primary Care Unavailable HIGHLYARA VILCHIS Attending Unavailable WEST, DR RICHARD Mark Consulting Unavailable YARA REYES Admitting Unavailable BALL, DR AWAN Primary Care Unavailable ZIEBER, DR JARED Gracia Consulting Unavailable HIGHLANDERYARA Consulting Unavailable AGUBOSIM, MANDEEP Consulting Unavailable FELIPE, DEEPAK Consulting Unavailable BRONSON, AMAR Consulting Unavailable YARA REYES Attending Unavailable HIGHLYARA VILCHIS Admitting Unavailable BALL, DR AWAN Primary Care Unavailable HIGHLANDERYARA Consulting Unavailable HIGHLANDERYARA Attending Unavailable HOY, DR LANDIS Primary Care Unavailable YARA REYES Admitting Unavailable HIGHLANDERYARA Consulting Unavailable SUZETTE, SONIA Attending Unavailable HOY, DR LANDIS Consulting Unavailable GISELE, DR LANDIS Primary Care Unavailable SUZETTE, SONIA Admitting Unavailable SUZETTE, SONIA Consulting Unavailable BRONSON, AMAR Attending Unavailable BRONSON, AMAR Admitting Unavailable HOY, DR LANDIS Primary Care Unavailable HOY, DR LANDIS Consulting Unavailable HOY, DR LANDIS Attending Unavailable HOY, DR LANDIS Admitting Unavailable HOY, DR LANDIS Primary Care Unavailable HOY, DR LANDIS Primary Care Unavailable GISELE, DR LANDIS Consulting Unavailable GISELE, DR LANDIS Attending Unavailable GISELE, DR LANDIS Admitting Unavailable CODY, FABRICIO Attending Unavailable FARSHADY, DR LANDIS Primary Care Unavailable DAJUANEBER, DR JARED Gracia Consulting Unavailable CODY, FABRICIO Admitting Unavailable CODY, FABRICIO Consulting Unavailable CODY, FABRICIO Attending Unavailable GISELE, DR LANDIS Primary Care Unavailable CODY, FABRICIO Admitting Unavailable EDVIN, DR JARED Gracia Consulting Unavailable CODY, FABRICIO Consulting Unavailable CODY, FABRICIO Attending Unavailable FARSHADY, DR LANDIS Primary Care Unavailable CODY, FABRICIO Admitting Unavailable HARTINGTON, DR RICHARD Mark Consulting Unavailable CODY, FABRICIO Consulting Unavailable Howard Calderon Unavailable Allergies Allergy Classification Reported Allergen(s) Allergy Type Date of Onset Reaction(s) Facility (2 sources) Nitrofurantoin Drug Allergy 05-08-20 15 Unknown [facility] Repository (1 source) Sulfonamides (Antibiotic) Drug allergy (disorder) 05-01-20 15 [facility] Repository (2 sources) Nitrofurantoin Drug Allergy 11-20-19 17 Unknown, Unknown Reaction [facility] Comment on above: Onset Date: 11/20/19 17 (2 sources) Substance with sulfonamide structure and antibacterial mechanism of action (substance) Drug allergy 11-20-19 17 Unknown [employer] Other (1 source) Sulfonamides (Antibiotic) Allergy to substance 07-01-19 25 Unknown Reaction [facility] Comment on above: Onset Date: 11/20/19 17 Medications Current Medications Medication Drug Class(es) Dates Sig (Normalized) Sig (Original) aspirin 81 mg delayed release oral tablet (3 sources) Platelet Aggregation Inhibitor, Nonsteroidal Anti-inflammatory Drug Start: 02-25-2024 Aspirin (Adult Low Dose Aspirin) 81 mg tablet,delayed release (/EC) Active 81 MG PO Daily February 24, 2024 11:00pm Start: 06-05-2022 take 1 tablet by elissa th every twenty-four hours Aspirin Adult Low Dose 81 MG 1 tablet Orally Once a day for 0 days May, Active benazepril hydrochloride 5 mg oral tablet (3 sources) Angiotensin Converting Enzyme Inhibitor Start: 02-25-2024 take 1 tablet by mouth once daily Benazepril 5 mg tablet Active 5 MG PO Daily February 24, 2024 11:00pm take 1 tablet by elissa every twenty-four hours Benazepril HCl 5 MG 1 tablet Orally Once a day Active calcium carbonate 1250 mg oral tablet (3 sources) Start: 02-25-2024 take 1 tablet by mouth once daily Calcium Carbonate (Oyster Shell Calcium) 500 mg calcium (1,250 mg) tablet Active 500 MG PO Daily February 24, 2024 11:00pm Start: 06-05-2022 take 1 tablet by elissa every twelve hours Calcium Oyster Shell 1250 (500 Ca) MG 1 tablet with food Orally Twice a day for 0 days May, Active cetirizine hydrochloride 10 mg oral tablet (3 sources) Histamine-1 Receptor Antagonist Start: 02-25-2024 take 1 tablet by mouth once daily Cetirizine 10 mg tablet Active 10 MG PO Daily February 24, 2024 11:00pm Start: 06-05-2022 take 1 tablet by elissa every twenty-four hours Cetirizine HCl 10 MG 1 tablet Orally Once a day for 0 days May, Active cholecalciferol 0.05 mg oral capsule (3 sources) Vitamin D Start: 02-25-2024 take 1 capsule by mouth once daily Cholecalciferol (Vitamin D3) 50 mcg (2,000 unit) capsule Active 2000 UNIT PO Daily February 24, 2024 11:00pm Start: 10-15-2021 take 1 capsule by [facility] every twenty-four hours Vitamin D3 50 MCG (2000 UT) 1 capsule Orally Once a day for 0 days Sep, Active Daily Multivitamin - (2 sources) Start: 06-05-2022 Daily Multivit walker - as directed Orally Daily for 0 days May, Active ferrous sulfate 325 mg oral tablet (3 sources) Start: 02-25-2024 take 1 tablet by mouth three times weekly Ferrous Sulfate 325 mg (65 mg iron) tablet Active 325 MG PO 3 Times a week February 24, 2024 11:00pm Start: 06-05-2022 take 1 tablet by elissa three times weekly Iron 325 (65 Fe) MG 1 tablet Orally Three times a Week for 0 days May, Active fluticasone propionate 0.70241 mg/mg topical ointment (1 source) Corticosteroid Start: 07-01-2024 Fluticasone Propionate 0.005 % ointment Active 1 APPLIC TOPICAL Daily July 01, 2024 12:00am hydroCHLOROthiazide 12.5 mg oral tablet (5 sources) Thiazide Diuretic Start: 02-26-2024 take 1 tablet by mouth once daily Hydrochlorothiazide 12.5 mg tablet Active 0 .ROUTE .COMPLEX February 26, 2024 12:34pm TAKE 1 TABLET BY MOUTH EVERY DAY Start: 02-25-2024 End: 02-26-2024 take 1 tablet by mouth once daily Hydrochlorothiazide 12.5 mg tablet Discontinued 12.5 MG PO Daily February 25, 2024 10:06am February 26, 2024 12:34pm take 1 tablet by elissa th once daily hydroCHLOROthiazide 12.5 MG TAKE 1 TABLET BY MOUTH DAILY for 90 Active levothyroxine sodium 0.112 mg oral tablet (4 sources) l-Thyroxine Start: 02-25-2024 End: 05-30-2024 take 1 tablet by mouth once daily Levothyroxine 112 mcg tablet Active 112 MCG PO Daily May 30, 2024 12:22pm take 1 tablet by elissa th once daily in the morning Levothyroxine Sodium 112 MCG 1 tablet in the morning on an empty stomach Orally Once a day for 90 days Active meloxicam 15 mg oral tablet (1 source) Nonsteroidal Anti-inflammatory Drug Start: 07-01-2024 take 1 tablet by mouth once daily Meloxicam 15 mg tablet Active 15 MG PO Daily July 01, 2024 12:00am Multivitamin (Daily Multi-Vitamin) tablet (1 source) Start: 02-25-2024 take 1 tablet by mouth once daily Multivitamin (Daily Multi-Vitamin) tablet Active 1 TAB PO Daily February 24, 2024 11:00pm Problems Active Problems Problem Classification Problem Date Documented Date Episodic/Chronic Acquired foot deformities (5 sources) Hallux rigidus, left foot; Translations: [HALLUX RIGIDUS LEFT FOOT] Onset: 07-26-2021 Chronic Essential hypertension (8 sources) Essential (primary) hypertension; Translations: [Essential hypertension] [...] conditions (not mental disorders or infectious disease) (3 sources) Encounter for screening mammogram for malignant neoplasm of breast; Translations: [Patient encounter status] Episodic Other skin disorders (2 sources) Ingrowing nail; Translations: [Ingrowing nail] Episodic Ovarian cyst (2 sources) Cyst of left ovary; Translations: [Unspecified ovarian cyst, left side] Episodic Thyroid disorders (8 sources) Autoimmune hypothyroidism; Translations: [Hypothyroidism, unspecified] Chronic Unclassified (3 sources) COUGH, UNSPECIFIED; Translations: [COUGH, UNSPECIFIED] Onset: 06-15-2022 Unclassified (4 sources) CONTACT W/AND (SUSP) EXPOS COVID-19; Translations: [CONTACT W/AND (SUSP) EXPOS COVID-19] Onset: 06-30-2021 Past or Other Problems Problem Classification Problem Date Documented Da te Episodic/Chronic Other aftercare (1 source) 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 When there are no FDA-approved or cleared tests available, and other criteria are met, FDA can make tests available under an emergency access mechanism called an Emergency Use Authorization (EUA). The EUA for this test is supported by the [place] of Health and Human Service's (HHS's) declaration [...] consistent with SARS-CoV-2. Performed By: #### [facility] ####[facility] [address] [place], [place] [address]RiTrice Lindsay INFLUENZA A AND B AGon 06-12 INFLUANEGH SEE BELOW Normal [facility] Comment on above: Result Comment: Nega tive for Flu A protein angiten. Infection due to Flu A cannot be ruled out. Flu A angiten in the sample may be below the detection limit of the test. Performed By: #### I NFLUAB #### [facility] [address] [place] [address] Dr. Karina Lindsay [facility] SEE BELOW Normal [facility] Comment on above: Result Comment: Nega tive for Flu B protein antigen. Infection due to Flu B cannot be ruled out. Flu B antigen in the sample may be below the detection limit of the test. Performed By: #### I NFLUAB #### [facility] [address] [address] [address] Karina Lindsay INFLUENZA A AG Negative Normal NEGATIVE SEE COMMENT [facility] Comment on above: Performed By: #### I NFLUAB #### [facility] [address] [place] [address] Dr. Karina Lindsay INFLUENZA B AG Negative Normal NEGATIVE SEE COMMENT [facility] Comment on above: Performed By: #### I NFLUAB #### [facility] [address] [place] [address] Dr. Karina Lindsay INTERNAL CONTROLS Within Normal Limits Normal Wi thin Normal Limits [facility] Comment on above: Performed By: #### I NFLUAB #### [facility] [address] [place] [address] Dr. Karina Lindsay CBC AUTO DIFFon 06-05-2022 BASO # 0.1 103/ul Normal 0.0-0.1 [facility] Comment on above: Performed By: #### C BC ####[facility] [address] [place] [address]DrTrice Lindsay Basophils/100 WBC (Bld) 1.2 % Normal 0.2-2.0 [facility] Comment on above: Performed By: #### C BC ####[facility] [address] [place] [address]DrTrice Lindsay EO # 0.2 103/ul Normal 0.0-0.7 [facility] Comment on above: Performed By: #### C BC ####[facility] [address] [place] [address]DrTrice Lindsay Eosinophils/100 WBC (Bld) 4.8 % Normal 0.9-7.0 [facility] Comment on above: Performed By: #### C BC ####[facility] [address] [address]Dr. Karina Lindsay Erythrocyte distribution width (RBC) [Ratio] 13.2 % Normal 11.0-15.0 [facility] Comment on above: Performed By: #### C BC ####[facility] [address] [place], [place] [address]Dr. Karina Lindsay Hematocrit (Bld) [Volume fraction] 38.2 % Normal 36.0-48.0 [facility] Comment on above: Performed By: #### C BC ####[facility] [address] [place], [place] [address]Dr. Karina Lindsay Hemoglobin (Bld) [Mass/Vol] 12.5 g/dL Normal 12.0-16.0 [facility] Comment on above: Performed By: #### C BC ####[facility] [address] [place], [place] [address]Dr. Karina Lindsay IG # 0.01 10e3/ul Normal 0.00-0.03 [facility] Comment on above: Performed By: #### C BC ####[facility] [address] [place], [place] [address]Dr. Karina Lindsay IG % 0.2 % Normal 0.0-0.5 [facility] Comment on above: Performed By: #### C BC ####[facility] [address] [place], [place] [address]Dr. Karina Lindsay LYMPH # 1.3 103/ul Normal 1.2-3.8 [facility] Comment on above: Performed By: #### C BC ####[facility] [address] [place], [place] [address]Dr. Karina Lindsay Lymphocytes/100 WBC (Bld) 25.0 % Normal 20.5-60.0 [facility] Comment on above: Performed By: #### C BC ####[facility] [address] [place], [place] [address]Dr. Karina Lindsay MANUAL DIFF REQ NO Normal [facility] Comment on above: Performed By: #### C BC ####[facility] [address] [place] [id number]. Karina Neftali MCH (RBC) [Entitic mass] 30.8 pg Normal 26.7-34.0 [facility] Comment on above: Performed By: #### C BC ####[facility] [address] [id number]. Karina Lindsay MCHC (RBC) [Mass/Vol] 32.7 g/dL Normal 29.9-35.2 [facility] Comment on above: Performed By: #### C BC ####[facility] [address] [place] [address]Dr. Karina Lindsay MCV (RBC) [Entitic vol] 94.1 fL Normal 81.0-99.0 [facility] Comment on above: Performed By: #### C BC ####[facility] [address] [place], [place] [address]Dr. Karina Lindsay MONO # 0.5 103/ul Normal 0.3-0.8 [facility] Comment on above: Performed By: #### C BC ####[facility] [address] [place], [place] [address]Dr. Karina Lindsay Monocytes/100 WBC (Bld) 10.5 % Normal 1.7-12.0 [facility] Comment on above: Performed By: #### C BC ####[facility] [address] [place], [place] [address]Dr. Karina Lindsay NEUT # 2.9 103/ul Normal 1.4-6.5 [facility] Comment on above: Performed By: #### C BC ####[facility] [address] [place], [place] [id number] Lindsay Neutrophils/100 WBC (Bld) 58.3 % Normal 43.0-75.0 [facility] Comment on above: Performed By: #### C BC ####[facility] [address] [place], [place] [address]DrTrice Lindsay Platelet mean volume (Bld) [Entitic vol] 9.7 fL Normal 9.5-13.5 [facility] Comment on above: Performed By: #### C BC ####[facility] [address] [place], [place] [address]Ei. Karina Lindsay PLT 303 103/ul Normal 150-450 [facility] Comment on above: Performed By: #### C BC ####[facility] [address] [place], [place] [address]Rf. [place] Neftali RBC 4.06 106/ul Critically low 4.20-5.40 [facility] Comment on above: Performed By: #### C BC ####[facility] [address] [place], [place] [address]Ux. Karina Lindsay WBC 5.0 103/ul Normal 4.0-11.0 [facility] Comment on above: Performed By: #### C BC ####[facility] [address] [place], [place] [address]Sm. Karina Lindsay LIPID PROFILEon 06-05-2022 CHOL-HDL RATIO NORM SEE BELOW Normal [facility] Comment on above: Result Comment: 3.3 - 4.4 LOW RISK 4.4 - 7.1 AVERAGE RISK 7.1 - 11.0 MODERATE RISK >11.0 HIGH RISK Performed By: #### C MP, LIPID, TSH #### [facility] [address] [address] [address] Karina Lindsay Cholesterol [Mass/Vol] 209 mg/dL Critically high <=200 [facility] Comment on above: Performed By: #### C MP, LIPID, TSH #### [facility] [address] [address] [address] Karina Lindsay Cholesterol in HDL [Mass/Vol] 75 mg/dL Critically high 40-60 [facility] Comment on above: Performed By: #### C MP, LIPID, TSH #### [facility] [address] [address] [address] Karina Lindsay Cholesterol in LDL [Mass/Vol] 117.2 mg/dL Normal [facility] Comment on above: Performed By: #### C MP, LIPID, TSH #### [facility] [address] [address] [address] Karina Lindsay Cholesterol.total/C holesterol in HDL [Mass ratio] 2.8 {ratio} Normal [facility] Comment on above: Performed By: #### C MP, LIPID, TSH #### [facility] [address] [address] [address] Karina Lindsay HDL NORMAL > or = 60 mg/dl - LO W CARDIOVASCULAR RISK <40 mg/dl - HIGH CARDIOVASCULAR RISK Normal [facility] Comment on above: Performed By: #### C MP, LIPID, TSH #### [facility] [address] [address] [address] Karina Lindsay LDL CALC NORMAL SEE BELOW Normal [facility] Comment on above: Result Comment: <100 mg/dl OPTIMAL 100 - 129 mg/dl NEAR OR ABOVE OPTIMAL 130 - 159 mg/dl BORDERLINE HIGH 160 - 189 mg/dl HIGH >190 mg/dl VERY HIGH Performed By: #### C MP, LIPID, TSH #### [facility] [address] [address] [address] Karina Lindsay Triglyceride [Mass/Vol] 84 mg/dL Normal <=150 [facility] Comment on above: Performed By: #### C MP, LIPID, TSH #### [facility] [address] [address] [address] Karina Lindsay VLDL CALC 16.8 mg/dL Normal [facility] Comment on above: Performed By: #### C MP, LIPID, TSH #### [facility] [address] [address] [address] Karina Lindsay PROF 14(COMP METB)on 022 Albumin [Mass/Vol] 4.1 g/dL Normal 3.4-5.0 [facility] Comment on above: Performed By: #### C MP, LIPID, TSH ####[facility] [address] [place] [address]Dr. Karina Lindsay Albumin/Globulin [Mass ratio] 1.2 {ratio} Normal [facility] Comment on above: Performed By: #### C MP, LIPID, TSH ####[facility] [address] [address]Dr. Karina Lindsay ALP [Catalytic activity/Vol] 82 U/L Normal 46-116 [facility] Comment on above: Performed By: #### C MP, LIPID, TSH ####[facility] [address] [address]Dr. Karina Lindsay ALT [Catalytic activity/Vol] 15 U/L Normal 14-59 [facility] Comment on above: Performed By: #### C MP, LIPID, TSH ####[facility] [address] [address]Dr. Karina Lindsay Anion gap [Moles/Vol] 9.9 mmol/L Normal [facility] Comment on above: Performed By: #### C MP, LIPID, TSH ####[facility] [address] [address]Dr. Karina Lindsay AST [Catalytic activity/Vol] 18 U/L Normal 15-37 [facility] Comment on above: Performed By: #### C MP, LIPID, TSH ####[facility] [address] [place] [address]Dr. Karina Lindsay Bilirubin [Mass/Vol] 0.3 mg/dL Normal 0.2-1.0 [facility] Comment on above: Performed By: #### C MP, LIPID, TSH ####[facility] [address] [place] [address]Dr. Karina Lindsay Calcium [Mass/Vol] 9.6 mg/dL Normal 8.5-10.1 [facility] Comment on above: Performed By: #### C MP, LIPID, TSH ####[facility] [address] [address]Dr. Karina Lindsay Chloride [Moles/Vol] 104 mmol/L Normal 98-107 [facility] Comment on above: Performed By: #### C MP, LIPID, TSH ####[facility] [address] [address]Dr. Karina Lindsay CO2 [Moles/Vol] 30.4 mmol/L Normal 21.0-32.0 [facility] Comment on above: Performed By: #### C MP, LIPID, TSH ####[facility] [address] [address]Dr. Karina Lindsay Creatinine [Mass/Vol] 0.91 mg/dL Normal 0.55-1.02 [facility] Comment on above: Performed By: #### C MP, LIPID, TSH ####[facility] [address] [place] [id number]. Karina Lindsay EGFR-AF SWAZI >60 Normal >=60 [facility] Comment on above: Performed By: #### C MP, LIPID, TSH ####[facility] [address] [place] [address]Dr. Karina Lindsay EGFR-NON AF SWAZI >60 Normal >=60 [facility] Comment on above: Performed By: #### C MP, LIPID, TSH ####[facility] [address] [place] [address]Dr. Karina Lindsay Globulin (S) [Mass/Vol] 3.5 g/dL Normal [facility] Comment on above: Performed By: #### C MP, LIPID, TSH ####[facility] [address] [place] [address]Dr. Karina Lindsay Glucose [Mass/Vol] 89 mg/dL Normal 74-106 [facility] Comment on above: Performed By: #### C MP, LIPID, TSH ####[facility] [address] [place] [address]Dr. Karina Lindsay Potassium [Moles/Vol] 4.3 mmol/L Normal 3.5-5.1 [facility] Comment on above: Performed By: #### C MP, LIPID, TSH ####[facility] [address] [address]Dr. Karina Lindsay Protein [Mass/Vol] 7.6 g/dL Normal 6.4-8.2 [facility] Comment on above: Performed By: #### C MP, LIPID, TSH ####[facility] [address] [place] [address]Dr. Karina Lindsay Sodium [Moles/Vol] 140 mmol/L Normal 136-145 [facility] Comment on above: Performed By: #### C MP, LIPID, TSH ####[facility] [address] [place], [place] [address]RiTrice Lindsay Urea nitrogen [Mass/Vol] 17.0 mg/dL Normal 7.0-18.0 [facility] Comment on above: Performed By: #### C MP, LIPID, TSH ####[facility] [address] [place], [place] [address]IbTrice Lindsay Urea nitrogen/Creatinine [Mass ratio] 18.7 mg/mg Normal [facility] Comment on above: Performed By: #### C MP, LIPID, TSH ####[facility] [address] [place], [place] [address]JfDr. Karina Lindsay TSHon 06-05-2022 TSH 2.794 uIU/mL Normal 0.358-3.740 [facility] Comment on above: Performed By: #### C MP, LIPID, TSH #### [facility] [address] [place], [place] [address] Dr. Karina Lindsay XR FOOT LT 2Von [...] RICHARD WOO Date: 2021-08-05 15:44 Normal [facility] Covid-19 PCR (CVDTB)on SARS-CoV-2 (COVID-19) RNA KO+probe Ql (Unsp spec) Not detected Normal NOT DETECTED [facility] Comment on above: Result Comment: This test is not yet approved or cleared by the [place] FDA. When there are no FDA-approved or cleared tests available, and other criteria are met, FDA can make tests available under an emergency access mechanism called an Emergency Use Authorization (EUA). The EUA for this test is supported by the [place] [employer] of Health and Human Service's (HHS's) declaration [...] with SARS-CoV-2. Performed By: #### C VDTBH ####[facility] [id number] [place], [place] [address]Uk. [place] Neftali Covid-19 PCR ([facility])on 05-30 SARS-CoV-2 (COVID-19) RNA KO+probe Ql (Unsp spec) Not detected Normal NOT DETECTED [facility] Comment on above: Result Comment: This test is not yet approved or cleared by the [place] FDA. When there are no FDA-approved or cleared tests available, and other criteria are met, FDA can make tests available under an emergency access mechanism called an Emergency Use Authorization (EUA). The EUA for this test is supported by the [place] [employer] [employer] of Health and Human Service's (HHS's) declaration [...] with SARS-CoV-2. Performed By: #### C VDTB ####[facility] [id number] [place] [id number]. Karina Neftali INFLUENZA A AND B AGon 06-24 INFLUANEGH SEE BELOW Normal [facility] Comment on above: Result Comment: Nega tive for Flu A protein angiten. Infection due to Flu A cannot be ruled out. Flu A angiten in the sample may be below the detection limit of the test. Performed By: #### I NFLUAB #### [facility] [address] [place] [address] Dr. Karina Lindsay INFLUBNEGH SEE BELOW Normal [facility] Comment on above: Result Comment: Nega tive for Flu B protein antigen. Infection due to Flu B cannot be ruled out. Flu B antigen in the sample may be below the detection limit of the test. Performed By: #### I NFLUAB #### [facility] [address] [place] [address] Dr. Karina Lindsay INFLUENZA A AG Negative Normal NEGATIVE SEE COMMENT [facility] Comment on above: Performed By: #### I NFLUAB #### [facility] [address] [place] [address] Dr. Karina Lindsay INFLUENZA B AG Negative Normal NEGATIVE SEE COMMENT [facility] Comment on above: Performed By: #### I NFLUAB #### [facility] [address] [place] [address] Dr. Karina Lindsay INTERNAL CONTROLS Within Normal Limits Normal Wi thin Normal Limits [facility] Comment on above: Performed By: #### I NFLUAB #### [facility] [address] [place] [address] Dr. Karina Lindsay Coding Summary.on 01-01-2018 Coding Summary. CODING DATE: 01/01/[address] [facility] STATUS: Home (Routine DC) PAYOR: Medical [place] [facility] DESCRIPTION 5671 Level 1 Pathology ADMIT [...] Walter Date Saved: 01/01/2018 08:[address] [facility] Vital Signs Date Time Vital Sign Value Performing Clinician Facility 07-01-2024 10:17-0500 Body height 170.18 cm [facility] 07-01-2024 10:17-0500 Body mass index (BMI) [Ratio] 29.3 kg/m2 [facility] 07-01-2024 10:17-0500 Body weight 84.99 kg [facility] 07-01-2024 10:17-0500 Diastolic blood pressure 83 mm[Hg] [facility] 07-01-2024 10:17-0500 Heart rate 77 /min [facility] 07-01-2024 10:17-0500 Respiratory rate 12 /min [facility] 07-01-2024 10:17-0500 Systolic blood pressure 159 mm[Hg] [facility] 06-08-2023 11:00-0500 Body height 170.18 cm Howard Ball Other [facility] [employer] Other 06-08-2023 11:00-0500 Body mass index (BMI) [Ratio] 30.44 kg/m2 Howard Ball Other [facility] [employer] Other 06-08-2023 11:00-0500 Body weight 88.18 kg Howard Ball Other [employer] Other 06-08-2023 11:00-0500 Diastolic blood pressure 86 mm[Hg] Howard Ball Other [employer] Other 06-08-2023 11:00-0500 Respiratory rate 12 /min Howard Ball Other [employer] Other 06-08-2023 11:00-0500 Systolic blood pressure 147 mm[Hg] Howard Ball Other [employer] Other Encounters Encounter Date Encounter Type Care Provider Facility Start: 07-01-2024 End: 07-01-2024 ambulatory [facility] Work Phone: Start: 07-01-2024 End: 07-01-2024 Encounter for general adult medical examination without abnormal findings [facility] Start: 07-01-2024 End: 07-01-2024 Patient encounter procedure [facility] Work Phone: Start: 06-27-2024 Patient encounter status [facility] Start: 06-09-2023 End: 06-09-2023 ambulatory Howard Calderon Other [employer] Other Start: 06-09-2023 Telephone encounter Howard Calderon [facility] Start: 06-08-2023 End: 06-08-2023 ambulatory Howard Calderon Other [employer] Other Start: 06-08-2023 Encounter for genera l adult medical examination without abnormal findings Howard Calderon [facility] Start: 06-08-2023 Periodic preventive med est patient 40-64yrs Howard Calderon [facility] Start: 06-12-2022 End: 06-12-[address] BOBY ROY Facility:[facility] Start: 06-09-2022 Encounter for genera l adult medical examination without abnormal findings DR HOWARD CALDERON [facility] Start: 06-05-2022 End: 06-06-[address] BOBY ROY Facility:[facility] Start: 06-05-2022 End: 06-06-2022 Encounter for general adult medical examination without abnormal findings DR BOBY ROY Facility:[facility] Start: 05-07-2022 End: 05-08-[address] BOBY ROY Facility:[facility] Start: 02-12-2022 End: 02-13-[address] [...] Encounter for preprocedural laboratory examination YARA REYES [facility] Start: 07-31-2021 End: 08-01-2021 ambulatory YARA REYES Facility:[facility] Start: 07-31-2021 End: 08-01-2021 Encounter for preprocedural laboratory examination YARA REYES Facility:[facility] Start: 07-24-2021 End: 07-25-2021 ambulatory YARA REYES Facility:[facility] Start: 06-24-2021 End: 06-24-[address] BOBY ROY Facility:[facility] Start: 12-23-2017 End: 12-24-2017 Ambulatory Cali De La Rosa Facility[facility] Plan of Treatment Date Care Activity Detail Author Comprehensive metabo lic 2000 panel - Serum or Plasma [facility] enter MG Breast - bilateral Screening [facility] Immunizations Immunization Date Immunization Notes Care Provider Fa cility 08-14-2020 COVID-19 Vaccine Pfi zer - Documentation Purposes Only Howard Calderon Other [facility] Payers Date Payer Category Payer Unknown [id number] 2017 Unknown 1965 Unknown [id number] 1965 Unknown [id number] 1965 Unknown [id number] ..[id number] 1965 Unknown [id number] ..[id number] [id number] 1965 Unknown [id number] ..[id number] 0.1.586629.3.579.2.59 1965 Unknown [id number] 2.16.84 [id number] 1965 Unknown [id number] 2.16.84 [id number] 1965 Unknown [id number] 2.16.84 0.1.589776.3.579.2.593 1965 Unknown [id number] 2.16.84 0.1.737872.3.579.2.593 1965 Unknown [id number] 2.16.84 0.1.763061.3.579.2.593 1965 Unknown [id number] 2.16.84 0.1.385728.3.579.2.593 1965 Unknown [id number] 2.16.84 [id number] 1965 Unknown [id number] 2.16.84 [id number] 1959 Self-pay [facility] [id number] Unknown [id number] 2.16.84 [id number] Social History Date Type Detail Facility Sex Assigned At [facility] [employer] Other Tobacco smoking stat [facility] Unknown if ever smoked [facility] Work Phone: Start: 07-01-2024 Sex Female (finding) [facility] Start: 1965 Sex Assigned At Female [facility] Evaluation note 06-08-2023 Note Date & Type [...] index [BMI] 30.0-30.9, adult (ICD-10 - Z68.30) [employer] Other Clinical Note 02-13-2022 Note Date & [...] authenticated by: JARED PARDO Date: 2022-02-13 06:35 [facility] Clinical Note 11-12-2021 Note Date & [...] by: RICHARD WOO Date: 2021-11-12 09:29 [facility] Clinical Note 10-15-2021 Note Date & [...] by: JARED PARDO Date: 2021-10-15 10:33 [facility] Clinical Note 09-17-2021 Note Date & [...] by: RICHARD WOO Date: 2021-09-17 10:34 [facility] Clinical Note 08-28-2021 Note Date & [...] by: JARED PARDO Date: 2021-08-28 17:30 [facility] Clinical Note 08-06-2021 Note Date & [...] authenticated by: JARED PARDO Date: 2021-08-06 07:17 [facility] Evaluation note Note Date & Type Note Facility Evaluation note No Information [facility] Other Evaluation note Note Date & Type Note Facility Evaluation note Diagnosis Onset Date Resolution Hypertension acute July 01, 2024 10:04am Hypothyroid acute July 01, 2024 10:04am Screening mammogram for breast cancer acute July 01 10:04am Wellness examination acute Mitul 2024 10:04am [facility] Work Phone: History general Narrative - Reported Note Date [...] adenoidectomy 01/13/2006 Hospitalization History see surgical history [employer] Other Summary Purpose Family History No Family History Records FoundNo Family History Records Found Advance Directives Advance Directive Response Recorded Date/ Time Advance Directives No July 01, 2024 10:03am Chief Complaint and Reason for Visit Chief Complaint Admit Date Wellness July 01, 2024 10 :04am Reason for Visit Admit Date Hypertension July 01, 2024 10 :04am Hypothyroid July 01, 2024 10 :04am Screening mammogram for breast cancer Ja nuary 2024 10:04am Wellness examination July 01, 2024 1 0:04am Additional Source Comments INFORMATION SOURCE (unrecogn ized section and content) DATE CREATED AUTHOR 01/04/2018 [facility] DATE CREATED AUTHOR AUTHOR'S ORGANIZ ATION 06/19/2022 [facility] REASON FOR VISIT (unrecogniz ed section and content) [facility] results Care Teams (unrecognized sec tion and content) Team Status: Active Member Role Status Dates Howard Calderon DO Primary Care Provider Active Team Status: Inactive Member Role Status Dates Howard Calderon DO Primary Care Provide r, Attending Provider Active Start: July 01, 2024 End: July 01, 2024 Goals (unrecognized section and content) Goals may be documented in a n alternate section FOR RECORDS PERTAINING TO PATIENTS WHO ARE [...] BE BASED ON THE PRIMARY CLINICAL RECORDS. [facility] [employer] [facility]. provides no warranty or guarantee of the accuracy or completeness of information in this document.
== END 2024-12-16 13:56 | disposition home or self-care (01) ==
LOC: MAMMO 13:56
PROVIDERS: PCP Internal Medicine; Visit Provider Internal Medicine
DX: Z12.31 Encounter for screening mammogram for malignant neoplasm of breast (principal); Z80.51 Family history of malignant neoplasm of kidney
CPT/HCPCS: 77063; 77067